=== PATIENT | female | born 1990 | race Caucasian/White ===

== ENCOUNTER 2020-09-11 14:22 | Emergency (ER) | payer MEDICAID ==
[~2020-09-11] VITALS: Ht 162.6 cm; Wt 90.6 kg
[~2020-09-11 14:22] MED LIST: None per pt
[2020-09-11 14:46] VITALS: BP 111/81
--- NOTE | 2020-09-11 16:03 | NUR ---
PT SITTER: PT TO ROOM FROM LOBBY
--- NOTE | 2020-09-11 16:55 | NUR ---
Patient/Caregiver given discharge instructions and they have confirmed that they understand the instructions. Patient ambulatory with steady gait.
== END 2020-09-11 16:57 | disposition home or self-care (01) ==
LOC: ED 14:50
DX: U07.1 COVID-19 (principal); B34.9 Viral infection, unspecified
CPT/HCPCS: 71045; 87635; 99284